=== PATIENT | female | born 1955 | race Caucasian/White ===

== ENCOUNTER 2024-04-03 10:44 | Outpatient (CLI) | payer MEDICARE ==
--- NOTE | 2024-04-03 16:11 | XRAY Report ---
PROCEDURE: Lumbar Spine 2-3V INDICATIONS: CHRONIC SACROILIAC PAIN WITH RIGHT SCIATICA TECHNIQUE: 3 views of the lumbar spine were acquired. COMPARISON: None. FINDINGS: Surgical change: None. Bones: 5 [id number] vertebrae are present. Levoconvex curvature of the lumbar spine with apex a t L2-L3 with Wayne angle of 33.3 degrees from the superior endplate of L2 to the inferior endplate of L4. Moderate to severe multilevel degenerative changes with osteophytosis, disc height loss and facet arthropathy worse at L3-L4 and L4-L5. No vertebral body compression fractures. No suspicious bony l esions. Soft tissues: Overlying bowel gas pattern is normal. No suspicious soft tissue calcifications. IMPRESSION: 1.No acute osseous abnormality. 2.Moderate to severe multilevel degenerative changes of the lumbar spine worse at L3-L4 and L4-L5. Le voconvex curvature centered at L2-L3 with Wayne angle of 33.3 degrees. If clinical symptoms persist, c onsider an MRI for further evaluation. Reviewed by: Shin Cuellar MD on 04/03/2024 4:10 PM PDT Approved by: Shin Cuellar MD on 04/03/2024 4:10 PM PDT Station ID: [id number]
== END 2024-04-03 10:45 | disposition home or self-care (01) ==
LOC: DI.N 10:44
PROVIDERS: ATTEND Family Medicine
DX: M47.26 Other spondylosis with radiculopathy, lumbar region (principal)